=== PATIENT | male | born 1970 | race Caucasian/White ===

== ENCOUNTER 2024-04-04 16:56 | Emergency (ER) | payer OTHER, SELFPAY ==
[2024-04-04 16:58] VITALS: BP 170/92; PULSE 68; RESP 18; TEMP 36.2; O2SAT 100; BMI 34.0
[2024-04-04 18:28] VITALS: O2SAT 98
--- NOTE | 2024-04-04 18:28 | EKG12_ITS ---
Test Reason : DYSRHYTHMIA Blood Pressure : / mmHG Vent. Rate : 067 BPM Atrial Rate : 067 BPM P-R Int : 196 ms QRS Dur : 102 ms QT Int : 392 ms P-R-T Axes : 014 033 015 degrees QTc Int : 414 ms Normal sinus rhythm Normal ECG Confirmed by Star Hanks ([id number]), editor house organ MARINE MOYA ([id number]) on 04/07/2024 9:18:15 AM Referred By: HARMEET Confirmed By:Star Hanks
--- NOTE | 2024-04-04 18:29 | EDS_ITS ---
HPI History of Present Illness Chief Complaint: Fatigue Informant: patient Onset/Context/Timing Onset: Today Context: Sudden Onset Current Severity: Mild Maximum Severity: Moderate Narrative Narrative: 54-year-old male history of gout and Graves' disease and takes levothyroxine. They are camping they typically live about an hour to hour and a half from here. About 5:00 today had sudden onset of just felt he might pass out. Had no headache. No chest pain. No abdominal pain. Denies nausea, vomiting, diarrhea. No black stools. No chest pain. No recent fever or melena. Is feeling better now. Says he feels fatigued. He is Prior similar symptoms: No Recent Illness/Hospitalization: No PFSH PFSH Allergy/AdvReac Type Severity Reaction Status Date / Time levothyroxine Allergy Mild Hives Verified 04/04/24 17:00 Social History Smoking Status: Never smoker ROS ROS ED ROS Narrative Denies recent illness. Review of Systems ROS Unobtainable: Denies due to encephalopathy Constitutional Constitutional ED: Denies chills or fever(s) Eyes Eyes: Denies blurry vision ENT ENT ED: Denies ear pain Cardiovascular Cardiovascular: Denies chest pain or palpitations Respiratory/Chest Respiratory/Chest: Denies cough or dyspnea Gastrointestinal Gastrointestinal: Denies abdominal pain, constipation, diarrhea, melena, nausea or vomiting Genitourinary Genitourinary ED: Denies dysuria or hematuria Musculoskeletal Musculoskeletal: Denies arthralgias or back pain Integumentary Denies abscess or Abrasions Neurologic Neurologic: Denies headache(s) Psychiatric Psychiatric: Denies anxiety or depression Endocrine Endocrinology: Denies cold intolerance Hematologic/Lymphatic Hematologic/Lymphatic: Reports none Allergic/Immunologic Allergic/Immunologic ED: Denies mouth swelling, tongue swelling or urticaria EXAM Physical Exam Narrative Exam Narrative: Well-appearing 54-year-old male. Vital signs stable afebrile. Pulse ox 100% on room air no signs hypoxia. Sitting upright in bed. Family at bedside. Clinically looks well. H EENT exam unremarkable. Moist extremities. Neck nontender JVD. Lungs clear to auscultation bilaterally. Heart regular rhythm no murmur rate about 70. Chest wall and ribs nontender. Abdomen soft nontender. Moving all 4 extremities. 5 of 5 administrative underwriter strength. Dorsi plantarflexion intact. Calves are nontender without edema or cords. Neurologically is awake alert no focal motor deficits. Const Vital Signs: 04/04/24 16:58 04/04/24 18:28 04/04/24 18:43 Temperature 97.2 F L Temperature Source Temporal Pulse Rate 68 Respiratory Rate 18 Respiratory Effort Normal Respiratory Pattern Normal Blood Pressure 170/92 H Blood Pressure Mean 118 Pulse Ox 100 98 Oxygen Delivery Method Room Air Room Air 04/04/24 18:45 04/04/24 20:00 Temperature Temperature Source Pulse Rate 88 65 Respiratory Rate 17 17 Respiratory Effort Respiratory Pattern Blood Pressure 168/80 H 129/82 H Blood Pressure Mean 109 97 Pulse Ox 99 97 Oxygen Delivery Method Room Air Room Air Positive well nourished and well developed; Negative for cachectic, contractures or unkempt General Appearance ED: well developed and NAD; Negative for unkempt, cachectic, contractures, cyanotic, diaphoretic or pallor Nutritional Appearance: Negative for cachectic HEENT Reports moist mucous membranes; Denies dry mucous membranes Negative for trauma or tenderness Mouth ED: No dry mucous membranes Mouth: No dry mucous membranes Eyes PERRL and EOMs intact bilaterally General Eye ED: Negative for pale conjunctiva or scleral icterus Neck no lymphadenopathy, supple and no JVD General: Negative for tenderness Lymph Lymphatic: Negative for other Chest Wall inspection of chest normal and palpation of chest normal Chest: Negative for other Resp normal respiratory effort and clear to auscultation bilaterally Effort and Inspection: Negative for retractions Auscultation: Negative for rales, rhonchi, wheezes or diminished lung sounds Cardio regular rate, regular rhythm, S1 normal heart sound, S2 normal heart sound and no murmurs Palpation: Negative for palpable S3 or palpable S4 Rate: Negative for bradycardia or tachycardic Rhythm: Negative for abnormal rhythm GI normal to inspection, nondistended, normoactive bowel sounds, non-tender, non- distended and no masses Inspection: Negative for abdominal distention Auscultation: normoactive bowel sounds Palpation: soft; Negative for tender, guarding or rebound tenderness present Back/Spine no CVA tenderness General Back: Negative for CVA tenderness Cervical Spine: Negative for cervical spine tenderness Thoracic Spine / Upper Back: Negative for thoracic spinal tenderness or paraspinal muscle tenderness Lumbar Spine / Lower Back: Negative for lumbar spinal tenderness Extremity normal to inspection General Extremety ED: Negative for edema, tenderness or other findings General Extremity: Negative for edema or other findings Neuro oriented x3 and CN's II-XII intact bilaterally Sensorium / Orientation: alert and orientation impaired; Negative for lethargic or stuporous Motor Exam: strength 5/5 throughout; Negative for general weakness or strength abnormal Psych mental status grossly normal Appearance: Negative for unkempt or other Attitude: No agitated Mood & Affect: Negative for depressed, anxious or tearful Skin no rashes or lesions noted, no wounds and skin turgor normal General Skin Exam: Negative for jaundice or pallor Lesions: No lesion noted Trauma: Negative for abrasion Wounds: Negative for wounds noted MDM MDM MDM Narrative Medical decision making narrative: 54-year-old male with an episode where he felt he was going to pass out. Now he just feels fatigued. He denies chest pain. Denies palpitations. He does have a history of hypothyroidism. States has been taking his meds. He denies any recent illness. He will undergo cardiac workup with a TSH. His exam now is benign and normal. Repeat exam patient doing well at 9:22 PM. We went over all his test results. Exams unchanged. I do not know the specific cause of his symptoms but he is had no recurrence while here. His EKG, chest x-ray and labs look good other than mild hyponatremia. He will be discharged home. Outpatient follow-up with his primary care physician. History & Record Review Discussion w/independent historian: Patient and Family Additional record(s) reviewed:: No prior records Lab Data Attestation: I reviewed the patient's lab results. Lab results narrative: CBC normal. White count 8. H&H 13 and 41. Platelets 169. Electrolytes shows a sodium 133. Gap 6. Normal BUN and creatinine. Glucose 159. Troponin normal at 4. TSH normal at 3.7. Labs: Laboratory Results - last 24 hr 04/04/24 18:35 WBC 8.0 RBC 4.75 Hgb 13.9 Hct 41.4 MCV 87.2 MCH 29.3 MCHC 33.6 RDW Std Deviation 41.6 RDW Coeff of Marcelo 13.1 Plt Count 169 MPV 9.9 Immature Gran % (Auto) 0.500 Neut % (Auto) 66.5 Lymph % (Auto) 19.8 [place] % (Auto) 10.5 H Eos % (Auto) 1.9 Baso % (Auto) 0.8 Absolute Neuts (auto) 5.3 Absolute Lymphs (auto) 1.58 Nucleated RBC % 0 Sodium 133 L Potassium 3.6 Chloride 99 Carbon Dioxide 28.0 Anion Gap 6 BUN 15 Creatinine 0.84 Estim Creat Clear Calc 145.71 Est GFR (MDRD) Af Amer 124 Est GFR (MDRD) Non-Af 103 BUN/Creatinine Ratio 17.9 Glucose 159 H Calcium 8.6 Troponin I High Sens 4 TSH 3.70 Radiography Chest X-Ray - ED: 1 View, Read by ED Physician, Heart, Lungs, Mediastinum, Bony Structures, No Acute Disease and Chronic Changes Diagnostic Testing: Clinical Impression(s) from Imaging Studies Chest X-Ray 04/04/24 18:45 IMPRESSION: No acute cardiopulmonary pathology Electronically Signed: Vish Sierra MD at 19:11 EDT Reading Location ID and State: [address] [place] [address] Tel , Service support , Chest x-ray, portable, interpreted both by myself and the radiologist shows no acute abnormality. Normal cardiac silhouette. Normal mediastinum. Normal lung burris. Rhythm Strip Rhythm Strip: Sinus Rhythm Rate: 67 Ectopy: None EKG Initial EKG: Attestation: I personally reviewed and interpreted this EKG as follows: Interpretation: Sinus Rhythm and No Acute Injury Pattern Comments: Normal sinus rhythm rate of 67 no acute signs of LA or ischemia. Discharge Plan Triage Chief Complaint: Fatigue ED Provider: Alvaro Olsen Dx/Rx/DC Orders Clinical Impression: Fatigue, Acute hyponatremia Instructions: ED Hyponatremia Primary Care Provider: NIKKI ABREU Referrals: [facility] Doctor,Out of [Non-Staff] - 1 Week if not improving Activity Restrictions/Additional Instructions: Your labs, EKG and chest x-ray all look good except your sodium was just mildly low at 133. Plenty of fluids. Follow-up with your doctor to have your sodium rechecked in several weeks. Print Language: Kyrgyz Disposition Disposition: Home, Self Care
[2024-04-04] MEDS: 0.9% Normal Saline (1000mL) 1,000 ML 999 ML IV (18:42)
[2024-04-04 18:45] VITALS: BP 168/80; PULSE 88; RESP 17; O2SAT 99
--- NOTE | 2024-04-04 18:45 | RAD_ITS ---
STUDY: X-RAY CHEST REASON FOR EXAM: Male, 54 years old. chest pain TECHNIQUE: AP portable COMPARISON: None. FINDINGS: The lungs are clear and expanded. There is no demonstrated pleural abnormality. Normal size heart. Normal mediastinum and martha. Normal visualized pulmonary arteries. Normal visualized aortic arch and descending thoracic aorta. Dorsal spine demonstrates degenerative changes Normal visualized ribs, clavicles, and shoulders. There is no demonstrated abnormality of the visualized soft tissue structures of the upper abdomen. RAD/Chest 1 View (Portable) IMPRESSION: No acute cardiopulmonary pathology Electronically Signed: Vish Sierra MD at 19:11 EDT ,
[2024-04-04 19:11] LABS: Absolute Lymphocyte Count 1.58 X10^3/uL (0.83-4.51); Absolute Neutrophil Count 5.3 X10^3/uL (2.0-7.7); Basophil# 0.06 X10^3/uL; Basophil% 0.8 % (0-1); Eosinophil# 0.15 X10^3/uL; Eosinophils% 1.9 % (0-5); Hematocrit 41.4 % (40-54); Hemoglobin 13.9 g/dL (13.0-16.5); Lymphocyte # 1.58 X10^3/ul (0.83-4.51); Lymphocyte % 19.8 % (19-41); Mean Corp Hgb Conc 33.6 g/dL (32-36); Mean Corpuscular Hgb 29.3 pg (27.0-32.0); Mean Corpuscular Volume 87.2 fL (80-94); Mean Platelet Vol. 9.9 fl (6.2-12.0); Monocyte# 0.84 X10^3/uL; Monocyte% 10.5 % (0-10); NRBC Flagged by Analyzer 0 % (0-5); Neutrophil # 5.32 X10^3/uL (2.7-7.7); Neutrophil % 66.5 % (47-70); Platelet Count 169 K/mm3 (150-450); RBC Distribution Width CV 13.1 % (11.6-14.6); RBC Distribution Width SD 41.6 fl (35.1-43.9); Red Blood Count 4.75 M/mm3 (4.6-6.2)
[2024-04-04 19:28] LABS: Anion Gap 6 (5-15); BUN 15 mg/dL (7-18); BUN/Creat Ratio 17.9 RATIO (10-20); Calcium,Total 8.6 mg/dL (8.5-10.1); Chloride 99 mmol/L (98-107); Creatinine, Serum 0.84 mg/dL (0.70-1.30); EST Glomerular Filtration Rate 103 mL/min (>60); Est Glom Filt Rate - Afr Amer 124 mL/min (>60); Estimated Creatinine Clearance 145.71 ml/min; Glucose 159 mg/dL (74-106); Potassium 3.6 mmol/L (3.5-5.1); Sodium Level 133 mmol/L (136-145); Troponin-I HS 4 pg/mL (3.0-78.0)
[2024-04-04 20:00] VITALS: BP 129/82; PULSE 65; RESP 17; O2SAT 97
[2024-04-04 21:34] VITALS: BP 145/90; PULSE 88; RESP 18; TEMP 36.4; O2SAT 97
== END 2024-04-04 21:39 | disposition home or self-care (01) ==
PROVIDERS: Emergency Provider Emergency Medicine; Visit Provider Emergency Medicine
DX: R53.83 Other fatigue (principal); E87.1 Hypo-osmolality and hyponatremia; M10.9 Gout, unspecified; E05.00 Thyrotoxicosis with diffuse goiter without thyrotoxic crisis or storm; Z79.890 Hormone replacement therapy
CPT/HCPCS: 71045; 80048; 84443; 84484; 85025; 93005; 96360; 96361; 99283; J7030; A4216